=== PATIENT | male | born 1970 | race African-American/Black ===

== ENCOUNTER 2016-05-22 22:29 | Observation (INO) | payer OTHER ==
[2016-05-22] MEDS ORDERED: Heparin for STEMI(*) 5,000 UNITS/ML 1 ML VIAL IV ONE ×2 (22:41→22:45)
[2016-05-22] MEDS ORDERED: nitroGLYCERIN DRIP* 0 ML ONE (22:41)
[2016-05-22] MEDS ORDERED: Ticagrelor* 90 MG TAB PO ONE ×2 (22:41→22:45)
[2016-05-22 22:52] LABS: Hematocrit 43 % (42-52); Mean Corpuscular HGB Conc 33 g/dl (31-36); Mean Corpuscular Hemoglobin 29 pg (27-31); Mean Corpuscular Volume 88 fL (80-94); Mean Platelet Volume 8 um3 (7.4-10.4); Red Blood Count 4.89 10^6/ul (4.0-5.4); Red Cell Distribution Width 14 % (10.5-15); White Blood Count 6.6 10^3/ul (3.5-10.8)
[2016-05-22] MEDS ORDERED: fentaNYL* 50 MCG/ML 2 ML VIAL (100 MCG VIAL) ONE (23:04)
[2016-05-22] MEDS ORDERED: Midazolam* 1 MG/ML 5 ML VIAL (5 MG) ONE (23:04)
[2016-05-22] MEDS ORDERED: Lidocaine 1% INJ* 10 MG/ML 30 ML SDV ONE (23:05)
[2016-05-22] MEDS ORDERED: Heparin 2 UNITS/ML IVPREMIX* 0 ML IV ONE (23:05)
[2016-05-22] MEDS ORDERED: nitroGLYCERIN DRIP* 250 ML ONE (23:05)
[2016-05-22] MEDS ORDERED: Iohexol 350 (CONTRAST) 200 ML MDV IV ONE (23:05)
[2016-05-22 23:06] LABS: BUN/Creatinine Ratio 13.5 (8-20); Calcium 9.5 mg/dL (8.6-10.3); EGFR African American 53.9 (>60); EGFR Non-African American 41.9 (>60); Globulin 3.7 g/dL (2-4); Potassium 3.8 mmol/L (3.5-5.0); Total Bilirubin 0.3 mg/dL (0.2-1.0); Total Protein 7.7 g/dL (6.4-8.9)
[2016-05-22] MEDS ORDERED: Heparin(*) 1000 UNIT/ML 10 ML VIAL CATH LAB IV ONE (23:06)
[2016-05-22 23:07] LABS: Urine Bacteria Absent (Absent); Urine Bilirubin Negative (Negative); Urine Glucose Negative (Negative); Urine Nitrite Negative (Negative)
[2016-05-22 23:10] LABS: Troponin I 0.01 ng/mL (<0.04)
--- NOTE | 2016-05-22 23:10 | RAD ---
Indication: Chest pain. STEMI alert. Comparison: None. Technique: Upright AP 2258 hours Report: Clear lungs and pleural spaces. Negative for pneumothorax. Mild cardiomegaly. Unremarkable central pulmonary vasculature and mediastinal contours. IMPRESSION: Mild cardiomegaly without evidence for pulmonary edema.
--- NOTE | 2016-05-23 00:33 | HP ---
H&P (Free Text) History and Physical: PCP: unknown Date/Time of Evaluation: 05/23/2015 0025 CC: chest pain HPI: Mr Márquez is a 45YO incarcerated male HX HTN who was walking up some stairs today around 1999 when he developed sharp, non-radiating L-sided chest pain associated with SOB, nausea, sweating, palpitations, and light-headedness. The chest pain was worse with deep inspiration. He denies F/C, cough, congestions, or other issues. He reported to Martín Deras MD interventional cardiology that he had had a cardiac cath in [facility] ~1 year ago, but a call by Dr Deras to that facility revealed no cardiac cath was done. He had an ECHO showing LVH & an EF of ~60%. Work up here reveals 2mm ST elevation in V1-4 with stable vitals and negative lab work. CXR is negative for acute finding. PMedHx HTN CKD stg3a Allergies Lisinopril Allergy (Severe, Verified 05/22/16 22:41) Airway Obstruction Ambulatory Orders Clonidine HCl [Catapres] 0.1 mg PO BID 05/23/16 Hydrochlorothiazide TAB* [Hydrodiuril TAB*] 25 mg PO DAILY 05/23/16 Metoprolol Tartrate [Lopressor] 25 mg PO BID 05/23/16 amLODIPine TAB* [Norvasc TAB*] 10 mg PO DAILY 05/23/16 PSurgHx LUE fasciotomy eye surgery SocHx: no tobacco, alcohol, or recreational drugs; incarcerated; full code status FamHx: Father: VT prior to age 65 ROS: as above, otherwise reviewed and all were negative Constitutional: NAD, normally developed, well-nourished black male vitals: Vital Signs Temp 36.8 C 05/22/16 22:32 Pulse 64 05/22/16 22:32 Resp 16 05/22/16 22:32 BP 152/92 05/22/16 22:32 Pulse Ox 96 05/22/16 22:32 Intake & Output 05/22/16 05/22/16 05/23/16 11:59 23:59 11:59 Weight 220 lb HEENM: atraumatic; sclera/conjunctiva: non-icteric/clear; hearing: intact; oropharynx: clear, mucosa moist Neck: soft tissue: normal; thyroid: normal Pulmonary: clear to auscultation bilaterally, good aeration, no accessory muscle use CV: RR/RR, normal S1S2, no carotid bruit, no jugular venous distention, 2+ B DP/ PT, no edema Abdominal: soft, non-distended, non-tender, no rebound/guarding/rigidity, normoactive bowel sounds, no hepatosplenomegaly or masses, no costovertebral angle tenderness Musculoskeletal: general: grossly intact; gait: stable Integumental: normal appearance and texture Psychiatric orientation: AA&O to PPS affect: calm mood: cooperative eye contact: good content: unreliable responses: timely insight: fair Testing: Lab Results 05/22/16 05/22/16 05/22/16 Range/Units 22:30 22:30 22:30 WBC 6.6 (3.5-10.8) 10^3/ul RBC 4.89 (4.0-5.4) 10^6/ul Hgb 14.0 (14.0-18.0) g/dl Hct 43 (42-52) % MCV 88 (80-94) fL MCH 29 (27-31) pg MCHC 33 (31-36) g/dl RDW 14 (10.5-15) % Plt Count 232 (150-450) 10^3/ul MPV 8 (7.4-10.4) um3 INR (Anticoag Therapy) 1.10 (0.89-1.11) APTT 31.0 (26.0-36.3) seconds Sodium 141 (133-145) mmol/L Potassium 3.8 (3.5-5.0) mmol/L Chloride 103 (101-111) mmol/L Carbon Dioxide 31 (22-32) mmol/L Anion Gap 7 (2-11) mmol/L BUN 24 (6-24) mg/dL Creatinine 1.78 H (0.67-1.17) mg/dL Est GFR ( Amer) 53.9 (>60) Est GFR (Non-Af Amer) 41.9 (>60) BUN/Creatinine Ratio 13.5 (8-20) Glucose 95 (70-100) mg/dL Calcium 9.5 (8.6-10.3) mg/dL Total Bilirubin 0.30 (0.2-1.0) mg/dL AST 19 (13-39) U/L ALT 18 (7-52) U/L Alkaline Phosphatase 61 (34-104) U/L Total Creatine Kinase 158 (10-223) U/L CK-MB (CK-2) 2.0 (0.6-6.3) ng/mL Myoglobin 45.1 (17.4-105.7) ng/mL Troponin I 0.01 (<0.04) ng/mL B-Natriuretic Peptide ( - 100) pg/mL Total Protein 7.7 (6.4-8.9) g/dL Albumin 4.0 (3.2-5.2) g/dL Globulin 3.7 (2-4) g/dL Albumin/Globulin Ratio 1.1 (1-3) LDL Cholesterol Direct 78 mg/dL Urine Color Urine Appearance Urine pH (5-9) Ur Specific [place] (1.010-1.030) Urine Protein (Negative) Urine Ketones (Negative) Urine Blood (Negative) Urine Nitrate (Negative) Urine Bilirubin (Negative) Urine Urobilinogen (Negative) Ur Leukocyte Esterase (Negative) Urine WBC (Auto) (Absent) Urine RBC (Auto) (Absent) Urine Bacteria (Absent) Urine Glucose (Negative) Urine Ascorbic Acid (Negative) Blood Type Antibody Screen 05/22/16 05/22/16 05/22/16 Range/Units 22:30 22:35 22:48 WBC (3.5-10.8) 10^3/ul RBC (4.0-5.4) 10^6/ul Hgb (14.0-18.0) g/dl Hct (42-52) % MCV (80-94) fL MCH (27-31) pg MCHC (31-36) g/dl RDW (10.5-15) % Plt Count (150-450) 10^3/ul MPV (7.4-10.4) um3 INR (Anticoag Therapy) (0.89-1.11) APTT (26.0-36.3) seconds Sodium (133-145) mmol/L Potassium (3.5-5.0) mmol/L Chloride (101-111) mmol/L Carbon Dioxide (22-32) mmol/L Anion Gap (2-11) mmol/L BUN (6-24) mg/dL Creatinine (0.67-1.17) mg/dL Est GFR ( Amer) (>60) Est GFR (Non-Af Amer) (>60) BUN/Creatinine Ratio (8-20) Glucose (70-100) mg/dL Calcium (8.6-10.3) mg/dL Total Bilirubin (0.2-1.0) mg/dL AST (13-39) U/L ALT (7-52) U/L Alkaline Phosphatase (34-104) U/L Total Creatine Kinase (10-223) U/L CK-MB (CK-2) (0.6-6.3) ng/mL Myoglobin (17.4-105.7) ng/mL Troponin I (<0.04) ng/mL B-Natriuretic Peptide 38 ( - 100) pg/mL Total Protein (6.4-8.9) g/dL Albumin (3.2-5.2) g/dL Globulin (2-4) g/dL Albumin/Globulin Ratio (1-3) LDL Cholesterol Direct mg/dL Urine Color Yellow Urine Appearance Clear Urine pH 5.0 (5-9) Ur Specific [place] 1.021 (1.010-1.030) Urine Protein 2+(100 mg/dl) H (Negative) Urine Ketones Negative (Negative) Urine Blood Negative (Negative) Urine Nitrate Negative (Negative) Urine Bilirubin Negative (Negative) Urine Urobilinogen Negative (Negative) Ur Leukocyte Esterase Negative (Negative) Urine WBC (Auto) Trace(0-5/hpf) (Absent) Urine RBC (Auto) Trace(0-2/hpf) (Absent) Urine Bacteria Absent (Absent) Urine Glucose Negative (Negative) Urine Ascorbic Acid * H (Negative) Blood Type O Positive Antibody Screen Negative ECG, personally reviewed: NSR rate 65, ST elevation V1-4 CXR, personally reviewed: IMPRESSION: Mild cardiomegaly without evidence for pulmonary edema. Impression: 45M presenting with chest pain for r/o ACS DIAGNOSIS & PLAN Primary chest pain r/o ACS : telemetry : trend troponin : ticagrelor : heparin GTT : supplemental oxygen : Martín Deras MD interventional cardiology consulted in ED, does not plan to follow unless work up is positive : supportive care Secondary HTN : continue amlodipine, metoprolol & clonidine : hold HCTZ CKD stg3a : IVFs, monitor Admission Rational: observation for r/o ACS DVTp: heparin GTT Code Status: full
[2016-05-23] MEDS ORDERED: Morphine INJ* 2 MG/ML 1 ML CARPUJECT IV PRN (00:35)
[2016-05-23] MEDS ORDERED: hydrALAZINE IV* 20 MG/ML VIAL IV PRN (00:35)
[2016-05-23] MEDS ORDERED: Melatonin (NF) 3 MG TAB PO PRN (00:35)
[2016-05-23] MEDS ORDERED: Ondansetron INJ* 2 MG/ML VIAL IV PRN (00:35)
[2016-05-23] MEDS ORDERED: Heparin DRIP 25,000 UNITS(*) 25,000 UNITS/500 ML BAG IVPB SCH (00:45)
[2016-05-23] MEDS ORDERED: Heparin VIAL(*) 5000 UNITS/ML VIAL (FIVE THOUSAND) IV SCH (02:00)
[2016-05-23] MEDS ORDERED: Omeprazole CAP* 20 MG PO SCH (06:00)
[2016-05-23 07:11] LABS: BUN/Creatinine Ratio 12.8 (8-20); Calcium 9.3 mg/dL (8.6-10.3); EGFR African American 59.3 (>60); EGFR Non-African American 46.1 (>60); Potassium 3.4 mmol/L (3.5-5.0)
[2016-05-23 07:14] LABS: Troponin I 0.01 ng/mL (<0.04)
[2016-05-23] MEDS: Metoprolol Tartrate TAB* 50 mg PO SCH ×2 (07:59→20:38)
[2016-05-23] MEDS: cloNIDine TAB* 0.1 MG PO SCH ×2 (07:59→20:38)
[2016-05-23] MEDS: amLODIPine TAB* 5 MG PO SCH (08:03)
[2016-05-23] MEDS ORDERED: Aspirin TAB* 325 MG PO SCH (09:00)
[2016-05-23] MEDS ORDERED: Docusate CAP* 100 MG PO SCH (09:00)
--- NOTE | 2016-05-23 12:29 | ED ---
Scarlet Pérez Matthew, scribed for Yakov Ruiz MD on 05/22/16 at 2249 . HPI Chest Pain - HPI Summary HPI Summary: A 45 y/o male presents to the ED with constant, sudden chest pain since 20:30 after climbing a flight of stairs. The pain is described as sharp, stabbing and rated 4/10 in severity. Associated symptoms include SOB, diaphoresis, and nausea. The patient states that he felt like he was going to pass out. PMHx includes an GA in January of 2016. At that time, the patient states he was treated at [facility]. He also states the pain feels similar to his pervious GA. His chest pain worsens with deep breaths and movement, rated 6/10 in severity. He is not currently on blood thinners and denies the placement of stents during his previous GA. The patient took aspirin and NTG [employer], which did not alleviate his chest pain. - History of Current Complaint Chief Complaint: EDChestPainROMI Hx Obtained From: Patient Onset/Duration: Started Hours Ago, Atraumatic, Still Present Timing: Constant Initial Severity: Moderate Current Severity: Moderate Pain Intensity: 4 Pain Scale Used: 0-10 Numeric Chest Pain Location: Left Lateral Chest Pain Radiates: No Character: Sharp/Stabbing Aggravating Factor(s): Movement, Deep Breaths Alleviating Factor(s): Nothing Associated Signs and Symptoms: Positive: Chest Pain, Shortness of Breath, Diaphoresis, Nausea - Allergy/Home Medications Allergies/Adverse Reactions: Allergies Allergy/AdvReac Type Severity Reaction Status Date / Time Lisinopril Allergy Severe Airway Verified 05/22/16 22:41 Obstruction Home Medications: Home Medications Clonidine HCl [Catapres] 0.1 mg PO BID 05/23/16 [History Confirmed 05/23/16] Hydrochlorothiazide TAB* [Hydrodiuril TAB*] 25 mg PO DAILY 05/23/16 [History Confirmed 05/23/16] Metoprolol Tartrate [Lopressor] 25 mg PO BID 05/23/16 [History Confirmed ] amLODIPine TAB* [Norvasc TAB*] 10 mg PO DAILY 05/23/16 [History Confirmed ] PMH/Surg Hx/FS Hx/Imm Hx Cardiovascular History: Reports: Hx Hypertension, Hx Myocardial Infarction - 2015 Infectious Disease History: No Infectious Disease History: Denies: Traveled Outside the [place] in Last 30 Days - Family History Known Family History: Positive: Cardiac Disease - Father - Social History Alcohol Amount: The patient states he used to binge drink frequently Hx Tobacco Use: Yes Smoking Status (MU): Former Smoker - since a few months ago Review of Systems Positive: Skin Diaphoresis Eyes: Negative ENT: Negative Positive: Chest Pain Positive: Shortness Of Breath Positive: Nausea Genitourinary: Negative Musculoskeletal: Negative Skin: Negative Neurological: Negative Psychological: Normal All Other Systems Reviewed And Are Negative: Yes Physical Exam - Summary Physical Exam Summary: VITAL SIGNS: Reviewed. GENERAL: Patient is a well developed and nourished male with acute distress secondary to pain. Patient is not in any acute respiratory distress. HEAD AND FACE: No signs of trauma. No ecchymosis, hematomas or skull depressions. No sinus tenderness. EYES: PERRLA, EOMI x 2, No injected conjunctiva, no nystagmus. EARS: Hearing grossly intact. Ear canals and tympanic membranes are within normal limits. MOUTH: Oropharynx within normal limits. NECK: Supple, trachea is midline, no adenopathy, no JVD, no carotid bruit, no c- spine tenderness, neck with full ROM. CHEST: Symmetric, no tenderness at palpation LUNGS: Clear to auscultation bilaterally. No wheezing or crackles. CVS: Regular rate and rhythm, S1 and S2 present, no murmurs or gallops appreciated. ABDOMEN: Soft, non-tender. No signs of distention. No rebound no guarding, and no masses palpated. Bowel sounds are normal. EXTREMITIES: FROM in all major joints, no edema, no cyanosis or clubbing. NEURO: Alert and oriented x 3. No acute neurological deficits. Speech is normal and follows commands. SKIN: Dry and warm Triage Information Reviewed: Yes Vital Signs On Initial Exam: Initial Vitals Temp Pulse Resp BP Pulse Ox 98.3 F 64 16 152/92 96 05/22/16 22:32 05/22/16 22:32 05/22/16 22:32 05/22/16 22:32 05/22/16 22:32 Vital Signs Reviewed: Yes Diagnostics - Vital Signs Vital Signs Temp Pulse Resp BP Pulse Ox 05/22/16 22:32 98.3 F 64 16 152/92 96 - Laboratory Lab Results: Lab Results 05/22/16 05/22/16 05/22/16 Range/Units 22:30 22:30 22:30 WBC 6.6 (3.5-10.8) 10^3/ul RBC 4.89 (4.0-5.4) 10^6/ul Hgb 14.0 (14.0-18.0) g/dl Hct 43 (42-52) % MCV 88 (80-94) fL MCH 29 (27-31) pg MCHC 33 (31-36) g/dl RDW 14 (10.5-15) % Plt Count 232 (150-450) 10^3/ul MPV 8 (7.4-10.4) um3 INR (Anticoag Therapy) 1.10 (0.89-1.11) APTT 31.0 (26.0-36.3) seconds Sodium 141 (133-145) mmol/L Potassium 3.8 (3.5-5.0) mmol/L Chloride 103 (101-111) mmol/L Carbon Dioxide 31 (22-32) mmol/L Anion Gap 7 (2-11) mmol/L BUN 24 (6-24) mg/dL Creatinine 1.78 H (0.67-1.17) mg/dL Est GFR ( Amer) 53.9 (>60) Est GFR (Non-Af Amer) 41.9 (>60) BUN/Creatinine Ratio 13.5 (8-20) Glucose 95 (70-100) mg/dL Calcium 9.5 (8.6-10.3) mg/dL Total Bilirubin 0.30 (0.2-1.0) mg/dL AST 19 (13-39) U/L ALT 18 (7-52) U/L Alkaline Phosphatase 61 (34-104) U/L Total Creatine Kinase 158 (10-223) U/L CK-MB (CK-2) 2.0 (0.6-6.3) ng/mL Myoglobin 45.1 (17.4-105.7) ng/mL Troponin I 0.01 (<0.04) ng/mL B-Natriuretic Peptide ( - 100) pg/mL Total Protein 7.7 (6.4-8.9) g/dL Albumin 4.0 (3.2-5.2) g/dL Globulin 3.7 (2-4) g/dL Albumin/Globulin Ratio 1.1 (1-3) LDL Cholesterol Direct 78 mg/dL Urine Color Urine Appearance Urine pH (5-9) Ur Specific [place] (1.010-1.030) Urine Protein (Negative) Urine Ketones (Negative) Urine Blood (Negative) Urine Nitrate (Negative) Urine Bilirubin (Negative) Urine Urobilinogen (Negative) Ur Leukocyte Esterase (Negative) Urine WBC (Auto) (Absent) Urine RBC (Auto) (Absent) Urine Bacteria (Absent) Urine Glucose (Negative) Urine Ascorbic Acid (Negative) Blood Type Antibody Screen 05/22/16 05/22/16 05/22/16 Range/Units 22:30 22:35 22:48 WBC (3.5-10.8) 10^3/ul RBC (4.0-5.4) 10^6/ul Hgb (14.0-18.0) g/dl Hct (42-52) % MCV (80-94) fL MCH (27-31) pg MCHC (31-36) g/dl RDW (10.5-15) % Plt Count (150-450) 10^3/ul MPV (7.4-10.4) um3 INR (Anticoag Therapy) (0.89-1.11) APTT (26.0-36.3) seconds Sodium (133-145) mmol/L Potassium (3.5-5.0) mmol/L Chloride (101-111) mmol/L Carbon Dioxide (22-32) mmol/L Anion Gap (2-11) mmol/L BUN (6-24) mg/dL Creatinine (0.67-1.17) mg/dL Est GFR ( Amer) (>60) Est GFR (Non-Af Amer) (>60) BUN/Creatinine Ratio (8-20) Glucose (70-100) mg/dL Calcium (8.6-10.3) mg/dL Total Bilirubin (0.2-1.0) mg/dL AST (13-39) U/L ALT (7-52) U/L Alkaline Phosphatase (34-104) U/L Total Creatine Kinase (10-223) U/L CK-MB (CK-2) (0.6-6.3) ng/mL Myoglobin (17.4-105.7) ng/mL Troponin I (<0.04) ng/mL B-Natriuretic Peptide 38 ( - 100) pg/mL Total Protein (6.4-8.9) g/dL Albumin (3.2-5.2) g/dL Globulin (2-4) g/dL Albumin/Globulin Ratio (1-3) LDL Cholesterol Direct mg/dL Urine Color Yellow Urine Appearance Clear Urine pH 5.0 (5-9) Ur Specific [place] 1.021 (1.010-1.030) Urine Protein 2+(100 mg/dl) H (Negative) Urine Ketones Negative (Negative) Urine Blood Negative (Negative) Urine Nitrate Negative (Negative) Urine Bilirubin Negative (Negative) Urine Urobilinogen Negative (Negative) Ur Leukocyte Esterase Negative (Negative) Urine WBC (Auto) Trace(0-5/hpf) (Absent) Urine RBC (Auto) Trace(0-2/hpf) (Absent) Urine Bacteria Absent (Absent) Urine Glucose Negative (Negative) Urine Ascorbic Acid * H (Negative) Blood Type O Positive Antibody Screen Negative 05/23/16 Range/Units 00:40 WBC (3.5-10.8) 10^3/ul RBC (4.0-5.4) 10^6/ul Hgb (14.0-18.0) g/dl Hct (42-52) % MCV (80-94) fL MCH (27-31) pg MCHC (31-36) g/dl RDW (10.5-15) % Plt Count (150-450) 10^3/ul MPV (7.4-10.4) um3 INR (Anticoag Therapy) (0.89-1.11) APTT (26.0-36.3) seconds Sodium (133-145) mmol/L Potassium (3.5-5.0) mmol/L Chloride (101-111) mmol/L Carbon Dioxide (22-32) mmol/L Anion Gap (2-11) mmol/L BUN (6-24) mg/dL Creatinine (0.67-1.17) mg/dL Est GFR ( Amer) (>60) Est GFR (Non-Af Amer) (>60) BUN/Creatinine Ratio (8-20) Glucose (70-100) mg/dL Calcium (8.6-10.3) mg/dL Total Bilirubin (0.2-1.0) mg/dL AST (13-39) U/L ALT (7-52) U/L Alkaline Phosphatase (34-104) U/L Total Creatine Kinase (10-223) U/L CK-MB (CK-2) (0.6-6.3) ng/mL Myoglobin (17.4-105.7) ng/mL Troponin I 0.01 (<0.04) ng/mL B-Natriuretic Peptide ( - 100) pg/mL Total Protein (6.4-8.9) g/dL Albumin (3.2-5.2) g/dL Globulin (2-4) g/dL Albumin/Globulin Ratio (1-3) LDL Cholesterol Direct mg/dL Urine Color Urine Appearance Urine pH (5-9) Ur Specific [place] (1.010-1.030) Urine Protein (Negative) Urine Ketones (Negative) Urine Blood (Negative) Urine Nitrate (Negative) Urine Bilirubin (Negative) Urine Urobilinogen (Negative) Ur Leukocyte Esterase (Negative) Urine WBC (Auto) (Absent) Urine RBC (Auto) (Absent) Urine Bacteria (Absent) Urine Glucose (Negative) Urine Ascorbic Acid (Negative) Blood Type Antibody Screen Result Diagrams: 05/22/16 22:30 05/23/16 05:07 Lab Statement: Any lab studies that have been ordered have been reviewed, and results considered in the medical decision making process. - Radiology CXR Xray Interpretation: Positive (See Comments) - IMPRESSION: Mild cardiomegaly without evidence for pulmonary edema. Radiology Interpretation Completed By: Radiologist - EKG 22:31 Cardiac Rate: NL - 66 bpm EKG Rhythm: Sinus Rhythm EKG Interpretation: ST elevation in leads V1, V2, V3; T-Wave inversion in lead III 22:35 Cardiac Rate: NL - 62 bpm EKG Rhythm: Sinus Rhythm EKG Interpretation: ST elevation in leads V1, V2, V3; T-Wave inversion in lead III Chest Pain Course/Dx - Course Assessment/Plan: 45 y/o male presents to the ED from detention with CC of chest pain. The patient reports that he was going up the steps when he developed chest pain and pressure, diaphoresis, SOB, nausea, and dizziness. . The patient was given aspirin and NTG and transferred to the ED. During the ED course, the patient continues to have chest pressure, nausea and dizziness. EKG has ST elevations vs LVH in the anterior leads; however, there is no EKG for comparison. The patient reports Hx of STEMI on 01/30, and with an EF of 20%. He reports that this incident occurred at [facility]. Patient also has long Hx of uncontrolled HTN. Therefore, because of the patients presentation, his PMH and EKG I decide to call STEMI alert. Patient was given Lovenox and Brilinta as per Dr. Deras. . Dr. Deras evaluated the patient and after obtaining old EKG from [facility] he believes the patient does not need to go to the laboratory equipment cleaner at this time and he should be admitted to the ICU with a heparin drip. .. Dr. Jansen accepts admission of the patient for further observation and management. - Chest Pain Differential Diagnosis/HQI/PQRI: Acute GA, ACS, Angina, CHF, Chest Wall - Diagnoses Provider Diagnoses: Chest pain with high risk for cardiac etiology During the Visit The Following Alert/Code Occurred: STEMI - Provider Notifications Discussed Care Of Patient With: Dr. Deras (Cardologist) at 22:51 -- Notified of patient's history and will evaluate the patient. Dr. Jansen ( Hospitalist) at 24:00 -- Notified of patient's history and will admit the patient into his services. Discharge - Discharge Plan Condition: Stable Disposition: ADMITTED TO [facility] The documentation as recorded by the Scarlet dominguez Matthew accurately reflects the service I personally performed and the decisions made by , Yakov Ruiz MD.
[2016-05-23] MEDS ORDERED: Potassium Chlor TAB* 20 MEQ TAB.ER PO ONE (13:45)
[2016-05-23] MEDS: Heparin VIAL(*) 5000 UNITS/ML VIAL (FIVE THOUSAND) SUBCUT SCH ×2 (14:17→21:43)
--- NOTE | 2016-05-23 14:29 | PN ---
Subjective Date of Service: 05/23/16 Interval History: Pt is feeling ok. His chest pain has resolved. He states the pain was left sided and he was markedly diaphoretic when having the chest pain. Objective Active Medications: Acetaminophen (Tylenol Tab*) 650 mg PO Q6H PRN PRN Reason: FEVER/PAIN Amlodipine Besylate (Norvasc Tab*) 10 mg PO DAILY [facility] Last Admin: 05/23/16 08:03 Dose: 10 mg Aspirin (Aspirin Ec Low Dose*) 81 mg PO DAILY [facility] Clonidine HCl (Catapres Tab*) 0.1 mg PO BID [facility] Last Admin: 05/23/16 07:59 Dose: 0.1 mg Heparin Sodium (Porcine) (Heparin Vial(*)) 5,000 units SUBCUT Q8HR [facility] Hydralazine HCl (Apresoline Iv*) 10 mg IV Q4H PRN PRN Reason: Systolic >170 Metoprolol Tartrate (Lopressor Tab*) 25 mg PO BID [facility] Last Admin: 05/23/16 07:59 Dose: 25 mg Ondansetron HCl (Zofran Inj*) 4 mg IV Q6H PRN PRN Reason: NAUSEA Vital Signs 05/23/16 05/23/16 05/23/16 01:56 02:57 03:12 Temperature 98.0 F 98.2 F Pulse Rate 66 61 Respiratory 14 20 16 Rate Blood Pressure 155/84 155/91 (mmHg) O2 Sat by Pulse 98 100 Oximetry 05/23/16 05/23/16 05/23/16 05:12 07:26 11:06 Temperature 98.4 F 98.5 F 98.5 F Pulse Rate 56 65 61 Respiratory 16 16 16 Rate Blood Pressure 150/78 140/89 128/74 (mmHg) O2 Sat by Pulse 100 100 100 Oximetry Oxygen Devices in Use Now: None Appearance: Middle aged male sitting up in bed, NAD Eyes: No Scleral Icterus Ears/Nose/Mouth/Throat: Mucous Membranes Moist Respiratory: Symmetrical Chest Expansion and Respiratory Effort, Clear to Auscultation Cardiovascular: NL Sounds; No Murmurs; No JVD, RRR, No Edema Abdominal: NL Sounds; No Tenderness; No Distention Extremities: No Clubbing, Cyanosis Skin: No Rash or Ulcers, No Nodules or Sclerosis Neurological: Alert and Oriented x 3 Result Diagrams: 05/22/16 22:30 05/23/16 05:07 Additional Lab and Data: Lab Results 05/22/16 05/22/16 05/22/16 Range/Units 22:30 22:30 22:30 WBC 6.6 (3.5-10.8) 10^3/ul RBC 4.89 (4.0-5.4) 10^6/ul Hgb 14.0 (14.0-18.0) g/dl Hct 43 (42-52) % MCV 88 (80-94) fL MCH 29 (27-31) pg MCHC 33 (31-36) g/dl RDW 14 (10.5-15) % Plt Count 232 (150-450) 10^3/ul MPV 8 (7.4-10.4) um3 INR (Anticoag Therapy) 1.10 (0.89-1.11) APTT 31.0 (26.0-36.3) seconds Sodium 141 (133-145) mmol/L Potassium 3.8 (3.5-5.0) mmol/L Chloride 103 (101-111) mmol/L Carbon Dioxide 31 (22-32) mmol/L Anion Gap 7 (2-11) mmol/L BUN 24 (6-24) mg/dL Creatinine 1.78 H (0.67-1.17) mg/dL Est GFR ( Amer) 53.9 (>60) Est GFR (Non-Af Amer) 41.9 (>60) BUN/Creatinine Ratio 13.5 (8-20) Glucose 95 (70-100) mg/dL Calcium 9.5 (8.6-10.3) mg/dL Total Bilirubin 0.30 (0.2-1.0) mg/dL AST 19 (13-39) U/L ALT 18 (7-52) U/L Alkaline Phosphatase 61 (34-104) U/L Total Creatine Kinase 158 (10-223) U/L CK-MB (CK-2) 2.0 (0.6-6.3) ng/mL Myoglobin 45.1 (17.4-105.7) ng/mL Troponin I 0.01 (<0.04) ng/mL B-Natriuretic Peptide ( - 100) pg/mL Total Protein 7.7 (6.4-8.9) g/dL Albumin 4.0 (3.2-5.2) g/dL Globulin 3.7 (2-4) g/dL Albumin/Globulin Ratio 1.1 (1-3) LDL Cholesterol Direct 78 mg/dL Urine Color Urine Appearance Urine pH (5-9) Ur Specific [place] (1.010-1.030) Urine Protein (Negative) Urine Ketones (Negative) Urine Blood (Negative) Urine Nitrate (Negative) Urine Bilirubin (Negative) Urine Urobilinogen (Negative) Ur Leukocyte Esterase (Negative) Urine WBC (Auto) (Absent) Urine RBC (Auto) (Absent) Urine Bacteria (Absent) Urine Glucose (Negative) Urine Ascorbic Acid (Negative) Blood Type Antibody Screen 05/22/16 05/22/16 05/22/16 Range/Units 22:30 22:35 22:48 WBC (3.5-10.8) 10^3/ul RBC (4.0-5.4) 10^6/ul Hgb (14.0-18.0) g/dl Hct (42-52) % MCV (80-94) fL MCH (27-31) pg MCHC (31-36) g/dl RDW (10.5-15) % Plt Count (150-450) 10^3/ul MPV (7.4-10.4) um3 INR (Anticoag Therapy) (0.89-1.11) APTT (26.0-36.3) seconds Sodium (133-145) mmol/L Potassium (3.5-5.0) mmol/L Chloride (101-111) mmol/L Carbon Dioxide (22-32) mmol/L Anion Gap (2-11) mmol/L BUN (6-24) mg/dL Creatinine (0.67-1.17) mg/dL Est GFR ( Amer) (>60) Est GFR (Non-Af Amer) (>60) BUN/Creatinine Ratio (8-20) Glucose (70-100) mg/dL Calcium (8.6-10.3) mg/dL Total Bilirubin (0.2-1.0) mg/dL AST (13-39) U/L ALT (7-52) U/L Alkaline Phosphatase (34-104) U/L Total Creatine Kinase (10-223) U/L CK-MB (CK-2) (0.6-6.3) ng/mL Myoglobin (17.4-105.7) ng/mL Troponin I (<0.04) ng/mL B-Natriuretic Peptide 38 ( - 100) pg/mL Total Protein (6.4-8.9) g/dL Albumin (3.2-5.2) g/dL Globulin (2-4) g/dL Albumin/Globulin Ratio (1-3) LDL Cholesterol Direct mg/dL Urine Color Yellow Urine Appearance Clear Urine pH 5.0 (5-9) Ur Specific [place] 1.021 (1.010-1.030) Urine Protein 2+(100 mg/dl) H (Negative) Urine Ketones Negative (Negative) Urine Blood Negative (Negative) Urine Nitrate Negative (Negative) Urine Bilirubin Negative (Negative) Urine Urobilinogen Negative (Negative) Ur Leukocyte Esterase Negative (Negative) Urine WBC (Auto) Trace(0-5/hpf) (Absent) Urine RBC (Auto) Trace(0-2/hpf) (Absent) Urine Bacteria Absent (Absent) Urine Glucose Negative (Negative) Urine Ascorbic Acid * H (Negative) Blood Type O Positive Antibody Screen Negative 05/23/16 Range/Units 00:40 WBC (3.5-10.8) 10^3/ul RBC (4.0-5.4) 10^6/ul Hgb (14.0-18.0) g/dl Hct (42-52) % MCV (80-94) fL MCH (27-31) pg MCHC (31-36) g/dl RDW (10.5-15) % Plt Count (150-450) 10^3/ul MPV (7.4-10.4) um3 INR (Anticoag Therapy) (0.89-1.11) APTT (26.0-36.3) seconds Sodium (133-145) mmol/L Potassium (3.5-5.0) mmol/L Chloride (101-111) mmol/L Carbon Dioxide (22-32) mmol/L Anion Gap (2-11) mmol/L BUN (6-24) mg/dL Creatinine (0.67-1.17) mg/dL Est GFR ( Amer) (>60) Est GFR (Non-Af Amer) (>60) BUN/Creatinine Ratio (8-20) Glucose (70-100) mg/dL Calcium (8.6-10.3) mg/dL Total Bilirubin (0.2-1.0) mg/dL AST (13-39) U/L ALT (7-52) U/L Alkaline Phosphatase (34-104) U/L Total Creatine Kinase (10-223) U/L CK-MB (CK-2) (0.6-6.3) ng/mL Myoglobin (17.4-105.7) ng/mL Troponin I 0.01 (<0.04) ng/mL B-Natriuretic Peptide ( - 100) pg/mL Total Protein (6.4-8.9) g/dL Albumin (3.2-5.2) g/dL Globulin (2-4) g/dL Albumin/Globulin Ratio (1-3) LDL Cholesterol Direct mg/dL Urine Color Urine Appearance Urine pH (5-9) Ur Specific [place] (1.010-1.030) Urine Protein (Negative) Urine Ketones (Negative) Urine Blood (Negative) Urine Nitrate (Negative) Urine Bilirubin (Negative) Urine Urobilinogen (Negative) Ur Leukocyte Esterase (Negative) Urine WBC (Auto) (Absent) Urine RBC (Auto) (Absent) Urine Bacteria (Absent) Urine Glucose (Negative) Urine Ascorbic Acid (Negative) Blood Type Antibody Screen Assess/Plan/Problems-Billing Mr Márquez is a 45 yo M who has a h/o HTN and stage III CKD who presented to the ER with c/o chest pain and associated diaphoresis. - Patient Problems (1) Chest pain Current Visit: Yes Status: Acute Code(s): R07.9 - CHEST PAIN, UNSPECIFIED SNOMED Code(s): 94674572 Comment: No signs of ACS. Stop the heparin drip. Continue to monitor on tele. Plan on stress test 05/25/16. He has been told to call his nurse if he has any recurrent chest pain. (2) HTN (hypertension) Current Visit: Yes Status: Acute Code(s): I10 - ESSENTIAL (PRIMARY) HYPERTENSION SNOMED Code(s): 06116646 Comment: BP is under good control today. Continue to monitor and continue current medication regimen. (3) Stage III chronic kidney disease Current Visit: Yes Status: Acute Code(s): N18.3 - CHRONIC KIDNEY DISEASE, STAGE 3 (MODERATE) SNOMED Code(s): 147453600 Comment: Creatinine is stable. (4) DVT prophylaxis Current Visit: Yes Status: Acute Code(s): TFL6452 - SNOMED Code(s): 642492185 Comment: SQ heparin (5) Full code status Current Visit: Yes Status: Acute Code(s): Z78.9 - OTHER SPECIFIED HEALTH STATUS SNOMED Code(s): 443910827
[2016-05-23] MEDS: Acetaminophen TAB* 325 MG PO PRN (20:43)
[2016-05-24] MEDS: Heparin VIAL(*) 5000 UNITS/ML VIAL (FIVE THOUSAND) SUBCUT SCH ×3 (05:08→21:57)
[2016-05-24] MEDS: Metoprolol Tartrate TAB* 50 mg PO SCH ×2 (08:10→21:52)
[2016-05-24] MEDS: cloNIDine TAB* 0.1 MG PO SCH (08:10)
[2016-05-24] MEDS: Aspirin EC Low Dose* 81 MG TAB.EC PO SCH (08:10)
[2016-05-24] MEDS: amLODIPine TAB* 5 MG PO SCH (08:11)
--- NOTE | 2016-05-24 11:08 | PN ---
Subjective Date of Service: 05/24/16 Interval History: Pt is feeling fine. He denies any chest pain. No SOB. Objective Active Medications: Acetaminophen (Tylenol Tab*) 650 mg PO Q6H PRN PRN Reason: FEVER/PAIN Last Admin: 05/23/16 20:43 Dose: 650 mg Amlodipine Besylate (Norvasc Tab*) 10 mg PO DAILY [facility] Last Admin: 05/24/16 08:11 Dose: 10 mg Aspirin (Aspirin Ec Low Dose*) 81 mg PO DAILY [facility] Last Admin: 05/24/16 08:10 Dose: 81 mg Clonidine HCl (Catapres Tab*) 0.1 mg PO BID [facility] Last Admin: 05/24/16 08:10 Dose: 0.1 mg Heparin Sodium (Porcine) (Heparin Vial(*)) 5,000 units SUBCUT Q8HR [facility] Last Admin: 05/24/16 05:08 Dose: 5,000 units Hydralazine HCl (Apresoline Iv*) 10 mg IV Q4H PRN PRN Reason: Systolic >170 Metoprolol Tartrate (Lopressor Tab*) 25 mg PO BID [facility] Last Admin: 05/24/16 08:10 Dose: 25 mg Ondansetron HCl (Zofran Inj*) 4 mg IV Q6H PRN PRN Reason: NAUSEA Vital Signs 05/23/16 05/23/16 05/23/16 18:17 19:27 19:36 Temperature 98.1 F Pulse Rate 68 Respiratory 14 16 24 Rate Blood Pressure 157/98 (mmHg) O2 Sat by Pulse 99 Oximetry 05/24/16 05/24/16 05/24/16 00:02 04:09 07:10 Temperature 98.4 F 97.8 F 98.1 F Pulse Rate 59 55 52 Respiratory 16 12 16 Rate Blood Pressure 133/75 148/91 147/73 (mmHg) O2 Sat by Pulse 99 100 98 Oximetry 05/24/16 05/24/16 08:00 08:03 Temperature Pulse Rate 69 Respiratory 16 Rate Blood Pressure (mmHg) O2 Sat by Pulse Oximetry Oxygen Devices in Use Now: None Appearance: Middle aged male lying in bed, NAD Eyes: No Scleral Icterus Ears/Nose/Mouth/Throat: Mucous Membranes Moist Respiratory: Symmetrical Chest Expansion and Respiratory Effort, Clear to Auscultation Cardiovascular: NL Sounds; No Murmurs; No JVD, RRR, No Edema Abdominal: NL Sounds; No Tenderness; No Distention Extremities: No Clubbing, Cyanosis Skin: No Rash or Ulcers, No Nodules or Sclerosis Neurological: Alert and Oriented x 3 Result Diagrams: 05/22/16 22:30 05/23/16 05:07 Additional Lab and Data: Lab Results 05/22/16 05/22/16 05/22/16 Range/Units 22:30 22:30 22:30 WBC 6.6 (3.5-10.8) 10^3/ul RBC 4.89 (4.0-5.4) 10^6/ul Hgb 14.0 (14.0-18.0) g/dl Hct 43 (42-52) % MCV 88 (80-94) fL MCH 29 (27-31) pg MCHC 33 (31-36) g/dl RDW 14 (10.5-15) % Plt Count 232 (150-450) 10^3/ul MPV 8 (7.4-10.4) um3 INR (Anticoag Therapy) 1.10 (0.89-1.11) APTT 31.0 (26.0-36.3) seconds Sodium 141 (133-145) mmol/L Potassium 3.8 (3.5-5.0) mmol/L Chloride 103 (101-111) mmol/L Carbon Dioxide 31 (22-32) mmol/L Anion Gap 7 (2-11) mmol/L BUN 24 (6-24) mg/dL Creatinine 1.78 H (0.67-1.17) mg/dL Est GFR ( Amer) 53.9 (>60) Est GFR (Non-Af Amer) 41.9 (>60) BUN/Creatinine Ratio 13.5 (8-20) Glucose 95 (70-100) mg/dL Calcium 9.5 (8.6-10.3) mg/dL Total Bilirubin 0.30 (0.2-1.0) mg/dL AST 19 (13-39) U/L ALT 18 (7-52) U/L Alkaline Phosphatase 61 (34-104) U/L Total Creatine Kinase 158 (10-223) U/L CK-MB (CK-2) 2.0 (0.6-6.3) ng/mL Myoglobin 45.1 (17.4-105.7) ng/mL Troponin I 0.01 (<0.04) ng/mL B-Natriuretic Peptide ( - 100) pg/mL Total Protein 7.7 (6.4-8.9) g/dL Albumin 4.0 (3.2-5.2) g/dL Globulin 3.7 (2-4) g/dL Albumin/Globulin Ratio 1.1 (1-3) LDL Cholesterol Direct 78 mg/dL Urine Color Urine Appearance Urine pH (5-9) Ur Specific [place] (1.010-1.030) Urine Protein (Negative) Urine Ketones (Negative) Urine Blood (Negative) Urine Nitrate (Negative) Urine Bilirubin (Negative) Urine Urobilinogen (Negative) Ur Leukocyte Esterase (Negative) Urine WBC (Auto) (Absent) Urine RBC (Auto) (Absent) Urine Bacteria (Absent) Urine Glucose (Negative) Urine Ascorbic Acid (Negative) Blood Type Antibody Screen 05/22/16 05/22/16 05/22/16 Range/Units 22:30 22:35 22:48 WBC (3.5-10.8) 10^3/ul RBC (4.0-5.4) 10^6/ul Hgb (14.0-18.0) g/dl Hct (42-52) % MCV (80-94) fL MCH (27-31) pg MCHC (31-36) g/dl RDW (10.5-15) % Plt Count (150-450) 10^3/ul MPV (7.4-10.4) um3 INR (Anticoag Therapy) (0.89-1.11) APTT (26.0-36.3) seconds Sodium (133-145) mmol/L Potassium (3.5-5.0) mmol/L Chloride (101-111) mmol/L Carbon Dioxide (22-32) mmol/L Anion Gap (2-11) mmol/L BUN (6-24) mg/dL Creatinine (0.67-1.17) mg/dL Est GFR ( Amer) (>60) Est GFR (Non-Af Amer) (>60) BUN/Creatinine Ratio (8-20) Glucose (70-100) mg/dL Calcium (8.6-10.3) mg/dL Total Bilirubin (0.2-1.0) mg/dL AST (13-39) U/L ALT (7-52) U/L Alkaline Phosphatase (34-104) U/L Total Creatine Kinase (10-223) U/L CK-MB (CK-2) (0.6-6.3) ng/mL Myoglobin (17.4-105.7) ng/mL Troponin I (<0.04) ng/mL B-Natriuretic Peptide 38 ( - 100) pg/mL Total Protein (6.4-8.9) g/dL Albumin (3.2-5.2) g/dL Globulin (2-4) g/dL Albumin/Globulin Ratio (1-3) LDL Cholesterol Direct mg/dL Urine Color Yellow Urine Appearance Clear Urine pH 5.0 (5-9) Ur Specific [place] 1.021 (1.010-1.030) Urine Protein 2+(100 mg/dl) H (Negative) Urine Ketones Negative (Negative) Urine Blood Negative (Negative) Urine Nitrate Negative (Negative) Urine Bilirubin Negative (Negative) Urine Urobilinogen Negative (Negative) Ur Leukocyte Esterase Negative (Negative) Urine WBC (Auto) Trace(0-5/hpf) (Absent) Urine RBC (Auto) Trace(0-2/hpf) (Absent) Urine Bacteria Absent (Absent) Urine Glucose Negative (Negative) Urine Ascorbic Acid * H (Negative) Blood Type O Positive Antibody Screen Negative 05/23/16 Range/Units 00:40 WBC (3.5-10.8) 10^3/ul RBC (4.0-5.4) 10^6/ul Hgb (14.0-18.0) g/dl Hct (42-52) % MCV (80-94) fL MCH (27-31) pg MCHC (31-36) g/dl RDW (10.5-15) % Plt Count (150-450) 10^3/ul MPV (7.4-10.4) um3 INR (Anticoag Therapy) (0.89-1.11) APTT (26.0-36.3) seconds Sodium (133-145) mmol/L Potassium (3.5-5.0) mmol/L Chloride (101-111) mmol/L Carbon Dioxide (22-32) mmol/L Anion Gap (2-11) mmol/L BUN (6-24) mg/dL Creatinine (0.67-1.17) mg/dL Est GFR ( Amer) (>60) Est GFR (Non-Af Amer) (>60) BUN/Creatinine Ratio (8-20) Glucose (70-100) mg/dL Calcium (8.6-10.3) mg/dL Total Bilirubin (0.2-1.0) mg/dL AST (13-39) U/L ALT (7-52) U/L Alkaline Phosphatase (34-104) U/L Total Creatine Kinase (10-223) U/L CK-MB (CK-2) (0.6-6.3) ng/mL Myoglobin (17.4-105.7) ng/mL Troponin I 0.01 (<0.04) ng/mL B-Natriuretic Peptide ( - 100) pg/mL Total Protein (6.4-8.9) g/dL Albumin (3.2-5.2) g/dL Globulin (2-4) g/dL Albumin/Globulin Ratio (1-3) LDL Cholesterol Direct mg/dL Urine Color Urine Appearance Urine pH (5-9) Ur Specific [place] (1.010-1.030) Urine Protein (Negative) Urine Ketones (Negative) Urine Blood (Negative) Urine Nitrate (Negative) Urine Bilirubin (Negative) Urine Urobilinogen (Negative) Ur Leukocyte Esterase (Negative) Urine WBC (Auto) (Absent) Urine RBC (Auto) (Absent) Urine Bacteria (Absent) Urine Glucose (Negative) Urine Ascorbic Acid (Negative) Blood Type Antibody Screen Assess/Plan/Problems-Billing Mr Márquez is a 45 yo M who has a h/o HTN and stage III CKD who presented to the ER with c/o chest pain and associated diaphoresis. - Patient Problems (1) Chest pain Current Visit: Yes Status: Acute Code(s): R07.9 - CHEST PAIN, UNSPECIFIED SNOMED Code(s): 92546361 Comment: No evidence of ACS. Continue tele monitoring. Stress test 05/25/16. (2) HTN (hypertension) Current Visit: Yes Status: Acute Code(s): I10 - ESSENTIAL (PRIMARY) HYPERTENSION SNOMED Code(s): 14349066 Comment: BP is mildly elevated. Will increase clonidine to 0.2mg qAM, 0.1mg qPM. (3) Stage III chronic kidney disease Current Visit: Yes Status: Acute Code(s): N18.3 - CHRONIC KIDNEY DISEASE, STAGE 3 (MODERATE) SNOMED Code(s): 555985811 Comment: Creatinine is stable. (4) DVT prophylaxis Current Visit: Yes Status: Acute Code(s): SEY4210 - SNOMED Code(s): 280027939 Comment: SQ heparin (5) Full code status Current Visit: Yes Status: Acute Code(s): Z78.9 - OTHER SPECIFIED HEALTH STATUS SNOMED Code(s): 240103683
[2016-05-24] MEDS ORDERED: cloNIDine TAB* 0.1 MG PO SCH (21:00)
[2016-05-24] MEDS: Acetaminophen TAB* 325 MG PO PRN (21:56)
[2016-05-25] MEDS: Heparin VIAL(*) 5000 UNITS/ML VIAL (FIVE THOUSAND) SUBCUT SCH ×2 (05:11→13:35)
[2016-05-25] MEDS ORDERED: cloNIDine TAB* 0.1 MG PO SCH (09:00)
[2016-05-25] MEDS ORDERED: Regadenoson* 0.4 MG/5 ML SYRINGE ONE (09:14)
[2016-05-25] MEDS ORDERED: Aminophylline IV* 25 MG/ML 10 ML VIAL ONE (09:14)
[2016-05-25] MEDS: Acetaminophen TAB* 325 MG PO PRN (11:05)
[2016-05-25] MEDS: Aspirin EC Low Dose* 81 MG TAB.EC PO SCH (11:06)
[2016-05-25] MEDS: amLODIPine TAB* 5 MG PO SCH (11:06)
--- NOTE | 2016-05-25 11:29 | RAD ---
HISTORY: Chest pain, hypertension, family history of heart disease, previous [place] COMPARISONS: None TECHNIQUE: A 1 day stress/rest myocardial perfusion study was performed, with pharmacologic stress. The stress portion was monitored by Dr. Niño. Gated SPECT imaging was performed, with CT-based attenuation correction DOSE: Stress: Technetium 99m tetrofosmin, 25.87 millicuries, injected at 9:20 AM on May 25, 2016 Rest: Technetium 99m tetrofosmin, 10.35 millicuries, injected at 6:45 AM on May 25, 2016 Pharmacologic agent: Lexiscan FINDINGS: CARDIAC MONITORING: No EKG changes of ischemia with stress EF: 34 % TID: 0.9 MOTION: There is diffuse hypokinesia PERFUSION: There is a fixed defect anterolaterally on the nonattenuation corrected images which is felt to BE an artifact. This resolves with attenuation correction. On the attenuation corrected images only, there is a partially reversible defect of the distal septum towards the apex. That is felt to be artifactual. OTHER: There is cardiomegaly. IMPRESSION: 1. DECREASED EJECTION FRACTION OF 34%. 2. CARDIOMEGALY. 3. THERE IS A QUESTIONABLE PARTIALLY REVERSIBLE DEFECT OF THE DISTAL SEPTUM ON THE ATTENUATION CORRECTED IMAGES WHICH IS FELT TO BE LIKELY ARTIFACTUAL ASSESSMENT: HIGH RISK. Based on imaging criteria from ACC/AHA 2002. Guideline Update for the Management of Patient's with Chronic Stable Angina, table 23. Noninvasive Risk Stratification.
[2016-05-25] MEDS: Metoprolol Tartrate TAB* 50 mg PO SCH (13:40)
--- NOTE | 2016-05-25 15:51 | ECHO ---
Patient: OBI VILCHIS [id number] [facility] Rec#: [id number] : 1970 Date: 05/25/2016 Age: 45y Height: 178 cm / 70.1 in Weight: 91.6 kg / 201.9 lbs Sex: M BSA: 2.1 Room#: 444 Admit Date#: 05/25/2016 Type: Inpatient Referring: Felisha Calixto DO Reading: Goran Corrales MD Hearing Aid Consultant: Timoteo Haynes RDCS Transthoracic Echocardiogram Indication: Chest pain BP: 144/94 HR: 52 Rhythm: Bradycardia Findings History: HTN, chest pain with SOB, CKD Technical Comments: The study quality is good. Left Ventricle: The left ventricular chamber size is normal. Moderate to severe concentric left ventricular hypertrophy is observed.Echo speckled pattern which could be consistant with infiltrative disease (ie amyloidosis) Mild global hypokinesis of the left ventricle is observed. There is mild to moderately decreased left ventricular systolic function. The estimated ejection fraction is 35-40%. There is no consistent Doppler evidence of clinically significant diastolic dysfunction. Left Atrium: The left atrium is mildly dilated. Right Ventricle: The right ventricle wall thickness is mildly increased. The right ventricular cavity size is normal. The right ventricular global systolic function is normal. Right Atrium: The right atrial cavity size is normal. Aortic Valve: The aortic valve is trileaflet. There is no evidence of aortic regurgitation. There is no evidence of aortic stenosis. Mitral Valve: The mitral valve leaflets appear normal. There is trace to mild mitral regurgitation. There is no evidence of mitral stenosis. Tricuspid Valve: The tricuspid valve appears normal in structure and function. There is no evidence of tricuspid valve regurgitation. Pulmonic Valve: The pulmonic valve appears normal in structure and function. There is no evidence of pulmonic regurgitation. There is no pulmonic stenosis. Pericardium: There is no pericardial effusion. Aorta: There is no dilatation of the ascending aorta. There is no dilatation of the aortic arch. There is no dilation of the aortic root. Pulmonary Artery: The main pulmonary artery appears normal. Venous: The inferior vena cava appears normal in size. There is a greater than 50% respiratory change in the inferior vena cava dimension. Conclusions Moderate to severe concentric left ventricular hypertrophy is observed.Echo speckled pattern which could be consistant with infiltrative disease (ie amyloidosis) Mild global hypokinesis of the left ventricle is observed. There is mild to moderately decreased left ventricular systolic function. The estimated ejection fraction is 35-40%. The right ventricle wall thickness is mildly increased. There is no evidence of aortic regurgitation. There is no evidence of aortic stenosis. There is trace to mild mitral regurgitation. The tricuspid valve appears normal in structure and function. There is no pericardial effusion. Measurements Name Value Normal Range RVIDd (AP) 2D 2.5 cm (0.9 - 2.6) RVDdMajor (2D) 2.8 cm (2.2 - 4.4) RAd ISD 4CH 3.9 cm (3.4 - 4.9) IVSd (2D) 1.9 cm (0.6 - 1) LVPWd (2D) 1.7 cm (0.6 - 1) LVIDd (2D) 5.3 cm (3.6 - 5.4) LVIDs (2D) 4.2 cm - LV FS (2D) 21 % (25 - 45) Aortic Annulus 2.1 cm (1.4 - 2.6) Ao root diameter (2D) 3.3 cm (2.1 - 3.5) Ascending Ao 3.3 cm (2.1 - 3.4) Aortic arch 2.8 cm (1.8 - 3.4) LA dimension (AP) 2D 4.6 cm (2.3 - 3.8) LAd ISD 4CH 4.1 cm (2.9 - 5.3) LA ISD 4CH W 5 cm (2.5 - 4.5) Name Value Normal Range LA ESV SP 4CH (A/L) 72 ml - LA ESV SP 2CH (A/L) 38 ml - LA ESV BP (A/L) 64 ml - LA ESV BP (A/L) index 78 ml/m2 - LA ESV SP 4CH (MOD) 64 ml - LA ESV SP 2CH (MOD) 36 ml - Name Value Normal Range MV E-wave Vmax 0.56 m/sec - MV deceleration time 190 msec - MV A-wave Vmax 0.62 m/sec - MV E:A ratio 0.9 ratio - LV septal e' Vmax 0.09 m/sec - LV lateral e' Vmax 0.05 m/sec - LV E:e' septal ratio 6.2 ratio - LV E:e' lateral ratio 11.2 ratio - Name Value Normal Range AV Vmax 0.8 m/sec - LVOT Vmax 0.9 m/sec - Name Value Normal Range IVC diameter 1.6 cm - Name Value Normal Range PV Vmax 0.78 m/sec -
--- NOTE | 2016-05-25 16:54 | PN ---
Subjective Date of Service: 05/25/16 Interval History: Pt is feeling ok. No further chest pain. No SOB. Objective Active Medications: Acetaminophen (Tylenol Tab*) 650 mg PO Q6H PRN PRN Reason: FEVER/PAIN Last Admin: 05/25/16 11:05 Dose: 650 mg Amlodipine Besylate (Norvasc Tab*) 10 mg PO DAILY [facility] Last Admin: 05/25/16 11:06 Dose: 10 mg Aspirin (Aspirin Ec Low Dose*) 81 mg PO DAILY [facility] Last Admin: 05/25/16 11:06 Dose: 81 mg Clonidine HCl (Catapres Tab*) 0.1 mg PO BEDTIME [facility] Last Admin: 05/24/16 21:56 Dose: 0.1 mg Clonidine HCl (Catapres Tab*) 0.2 mg PO QAM [facility] Last Admin: 05/25/16 11:05 Dose: 0.2 mg Heparin Sodium (Porcine) (Heparin Vial(*)) 5,000 units SUBCUT Q8HR [facility] Last Admin: 05/25/16 13:35 Dose: 5,000 units Hydralazine HCl (Apresoline Iv*) 10 mg IV Q4H PRN PRN Reason: Systolic >170 Metoprolol Tartrate (Lopressor Tab*) 25 mg PO BID [facility] Last Admin: 05/25/16 13:40 Dose: Not Given Ondansetron HCl (Zofran Inj*) 4 mg IV Q6H PRN PRN Reason: NAUSEA Vital Signs 05/24/16 05/24/16 05/25/16 19:34 20:00 01:11 Temperature 98.3 F 98.2 F Pulse Rate 58 54 Respiratory 18 18 20 Rate Blood Pressure 158/97 139/80 (mmHg) O2 Sat by Pulse 100 99 Oximetry 05/25/16 04:41 Temperature 97.8 F Pulse Rate 55 Respiratory 20 Rate Blood Pressure 144/94 (mmHg) O2 Sat by Pulse 100 Oximetry Oxygen Devices in Use Now: None Appearance: Middle aged male lying in bed, NAD Eyes: No Scleral Icterus Ears/Nose/Mouth/Throat: Mucous Membranes Moist Respiratory: Symmetrical Chest Expansion and Respiratory Effort, Clear to Auscultation Cardiovascular: NL Sounds; No Murmurs; No JVD, RRR, No Edema Abdominal: NL Sounds; No Tenderness; No Distention Extremities: No Clubbing, Cyanosis Skin: No Rash or Ulcers, No Nodules or Sclerosis Neurological: Alert and Oriented x 3 Result Diagrams: 05/22/16 22:30 05/23/16 05:07 Additional Lab and Data: Lab Results 05/22/16 05/22/16 05/22/16 Range/Units 22:30 22:30 22:30 WBC 6.6 (3.5-10.8) 10^3/ul RBC 4.89 (4.0-5.4) 10^6/ul Hgb 14.0 (14.0-18.0) g/dl Hct 43 (42-52) % MCV 88 (80-94) fL MCH 29 (27-31) pg MCHC 33 (31-36) g/dl RDW 14 (10.5-15) % Plt Count 232 (150-450) 10^3/ul MPV 8 (7.4-10.4) um3 INR (Anticoag Therapy) 1.10 (0.89-1.11) APTT 31.0 (26.0-36.3) seconds Sodium 141 (133-145) mmol/L Potassium 3.8 (3.5-5.0) mmol/L Chloride 103 (101-111) mmol/L Carbon Dioxide 31 (22-32) mmol/L Anion Gap 7 (2-11) mmol/L BUN 24 (6-24) mg/dL Creatinine 1.78 H (0.67-1.17) mg/dL Est GFR ( Amer) 53.9 (>60) Est GFR (Non-Af Amer) 41.9 (>60) BUN/Creatinine Ratio 13.5 (8-20) Glucose 95 (70-100) mg/dL Calcium 9.5 (8.6-10.3) mg/dL Total Bilirubin 0.30 (0.2-1.0) mg/dL AST 19 (13-39) U/L ALT 18 (7-52) U/L Alkaline Phosphatase 61 (34-104) U/L Total Creatine Kinase 158 (10-223) U/L CK-MB (CK-2) 2.0 (0.6-6.3) ng/mL Myoglobin 45.1 (17.4-105.7) ng/mL Troponin I 0.01 (<0.04) ng/mL B-Natriuretic Peptide ( - 100) pg/mL Total Protein 7.7 (6.4-8.9) g/dL Albumin 4.0 (3.2-5.2) g/dL Globulin 3.7 (2-4) g/dL Albumin/Globulin Ratio 1.1 (1-3) LDL Cholesterol Direct 78 mg/dL Urine Color Urine Appearance Urine pH (5-9) Ur Specific [place] (1.010-1.030) Urine Protein (Negative) Urine Ketones (Negative) Urine Blood (Negative) Urine Nitrate (Negative) Urine Bilirubin (Negative) Urine Urobilinogen (Negative) Ur Leukocyte Esterase (Negative) Urine WBC (Auto) (Absent) Urine RBC (Auto) (Absent) Urine Bacteria (Absent) Urine Glucose (Negative) Urine Ascorbic Acid (Negative) Blood Type Antibody Screen 05/22/16 05/22/16 05/22/16 Range/Units 22:30 22:35 22:48 WBC (3.5-10.8) 10^3/ul RBC (4.0-5.4) 10^6/ul Hgb (14.0-18.0) g/dl Hct (42-52) % MCV (80-94) fL MCH (27-31) pg MCHC (31-36) g/dl RDW (10.5-15) % Plt Count (150-450) 10^3/ul MPV (7.4-10.4) um3 INR (Anticoag Therapy) (0.89-1.11) APTT (26.0-36.3) seconds Sodium (133-145) mmol/L Potassium (3.5-5.0) mmol/L Chloride (101-111) mmol/L Carbon Dioxide (22-32) mmol/L Anion Gap (2-11) mmol/L BUN (6-24) mg/dL Creatinine (0.67-1.17) mg/dL Est GFR ( Amer) (>60) Est GFR (Non-Af Amer) (>60) BUN/Creatinine Ratio (8-20) Glucose (70-100) mg/dL Calcium (8.6-10.3) mg/dL Total Bilirubin (0.2-1.0) mg/dL AST (13-39) U/L ALT (7-52) U/L Alkaline Phosphatase (34-104) U/L Total Creatine Kinase (10-223) U/L CK-MB (CK-2) (0.6-6.3) ng/mL Myoglobin (17.4-105.7) ng/mL Troponin I (<0.04) ng/mL B-Natriuretic Peptide 38 ( - 100) pg/mL Total Protein (6.4-8.9) g/dL Albumin (3.2-5.2) g/dL Globulin (2-4) g/dL Albumin/Globulin Ratio (1-3) LDL Cholesterol Direct mg/dL Urine Color Yellow Urine Appearance Clear Urine pH 5.0 (5-9) Ur Specific [place] 1.021 (1.010-1.030) Urine Protein 2+(100 mg/dl) H (Negative) Urine Ketones Negative (Negative) Urine Blood Negative (Negative) Urine Nitrate Negative (Negative) Urine Bilirubin Negative (Negative) Urine Urobilinogen Negative (Negative) Ur Leukocyte Esterase Negative (Negative) Urine WBC (Auto) Trace(0-5/hpf) (Absent) Urine RBC (Auto) Trace(0-2/hpf) (Absent) Urine Bacteria Absent (Absent) Urine Glucose Negative (Negative) Urine Ascorbic Acid * H (Negative) Blood Type O Positive Antibody Screen Negative 05/23/16 Range/Units 00:40 WBC (3.5-10.8) 10^3/ul RBC (4.0-5.4) 10^6/ul Hgb (14.0-18.0) g/dl Hct (42-52) % MCV (80-94) fL MCH (27-31) pg MCHC (31-36) g/dl RDW (10.5-15) % Plt Count (150-450) 10^3/ul MPV (7.4-10.4) um3 INR (Anticoag Therapy) (0.89-1.11) APTT (26.0-36.3) seconds Sodium (133-145) mmol/L Potassium (3.5-5.0) mmol/L Chloride (101-111) mmol/L Carbon Dioxide (22-32) mmol/L Anion Gap (2-11) mmol/L BUN (6-24) mg/dL Creatinine (0.67-1.17) mg/dL Est GFR ( Amer) (>60) Est GFR (Non-Af Amer) (>60) BUN/Creatinine Ratio (8-20) Glucose (70-100) mg/dL Calcium (8.6-10.3) mg/dL Total Bilirubin (0.2-1.0) mg/dL AST (13-39) U/L ALT (7-52) U/L Alkaline Phosphatase (34-104) U/L Total Creatine Kinase (10-223) U/L CK-MB (CK-2) (0.6-6.3) ng/mL Myoglobin (17.4-105.7) ng/mL Troponin I 0.01 (<0.04) ng/mL B-Natriuretic Peptide ( - 100) pg/mL Total Protein (6.4-8.9) g/dL Albumin (3.2-5.2) g/dL Globulin (2-4) g/dL Albumin/Globulin Ratio (1-3) LDL Cholesterol Direct mg/dL Urine Color Urine Appearance Urine pH (5-9) Ur Specific [place] (1.010-1.030) Urine Protein (Negative) Urine Ketones (Negative) Urine Blood (Negative) Urine Nitrate (Negative) Urine Bilirubin (Negative) Urine Urobilinogen (Negative) Ur Leukocyte Esterase (Negative) Urine WBC (Auto) (Absent) Urine RBC (Auto) (Absent) Urine Bacteria (Absent) Urine Glucose (Negative) Urine Ascorbic Acid (Negative) Blood Type Antibody Screen Assess/Plan/Problems-Billing Mr Márquez is a 45 yo M who has a h/o HTN and stage III CKD who presented to the ER with c/o chest pain and associated diaphoresis. - Patient Problems (1) Chest pain Current Visit: Yes Status: Acute Code(s): R07.9 - CHEST PAIN, UNSPECIFIED SNOMED Code(s): 10415393 Comment: No evidence of ACS. Stress test showed a partially reversible defect though this corrects with attenuation. His EF however is reported to be 34% this is markedly down from Dr. Deras was quoted when he spoke to someone at [facility] on admission. Echo was therefore performed which confirmed his EF to be 35-40%. He also has a speckled pattern-? amyloidosis. He needs a cardiology evaluation though this does not need to be performed while he is in the hospital. (2) HTN (hypertension) Current Visit: Yes Status: Acute Code(s): I10 - ESSENTIAL (PRIMARY) HYPERTENSION SNOMED Code(s): 91319541 Comment: BP remains mildly elevated. Continue current medication regimen though decreased clonidine back to 0.1mg BID and add losartan given his reduced EF. (3) Stage III chronic kidney disease Current Visit: Yes Status: Acute Code(s): N18.3 - CHRONIC KIDNEY DISEASE, STAGE 3 (MODERATE) SNOMED Code(s): 656087245 Comment: Creatinine is stable. (4) DVT prophylaxis Current Visit: Yes Status: Acute Code(s): FDV8208 - SNOMED Code(s): 957222718 Comment: SQ heparin (5) Full code status Current Visit: Yes Status: Acute Code(s): Z78.9 - OTHER SPECIFIED HEALTH STATUS SNOMED Code(s): 494942008 Status and Disposition: d/c home
--- NOTE | 2016-05-25 17:32 | PN ---
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 I feel it is too risky to start losartan at this time and therefore will have the patient resume his usual dose of HCTZ upon discharge.
[2016-05-25 17:56] VITALS: BP 132/78
--- NOTE | 2016-05-26 15:28 | DS ---
DISCHARGE SUMMARY: DATE OF ADMISSION: 05/23/16 DATE OF DISCHARGE: 05/25/16 PRIMARY CARE PROVIDER: Physician at [facility]. PRINCIPAL DIAGNOSES: 1. Chest pain of unclear etiology. 2. Reduced ejection fraction. 3. Hypertension. DISCHARGE MEDICATIONS: 1. Metoprolol tartrate 25 mg p.o. b.i.d. 2. Clonidine 0.1 mg p.o. b.i.d. 3. Amlodipine 10 mg p.o. daily. 4. Hydrochlorothiazide 25 mg p.o. daily. 5. Aspirin 81 mg p.o. daily (new). HOSPITAL COURSE: Ms. Márquez is a 45-year-old male who presented to the emergency room on 05/22/16 with complaints of chest pain. The patient was admitted to rule out an acute coronary syndrome. However, he was also started on heparin drip, as there was a significant concern for acute coronary syndrome. The patient was brought in as a STEMI alert, however, the patient was seen in the emergency room by Dr. Deras, who felt that the patient was not in fact a STEMI, but LVH with strain. Dr. Deras was able to speak with somebody at [facility] where he learned that the patient had an echocardiogram performed that revealed an EF of 60% at that point. The patient had been stating that he had a catheterization, however, that was not the case. The patient was admitted and ruled out for an acute coronary syndrome. When the patient's troponins remained negative, the heparin drip was stopped. He underwent a chemical nuclear stress test on the day of discharge, which revealed decreased ejection fraction of 34%. Cardiomegaly and questionable partially reversible defect of the distal septum on the attenuation corrected images, which is felt to be likely artifactual. Given the reduced ejection fraction seen on stress test compared to the reported ejection fraction in January [address] Deras was informed of, the decision was made to obtain a transthoracic echocardiogram. This was also done on the day of discharge. The patient was found to have an EF of 35 to 40% with moderate severe concentric left ventricular hypertrophy. Echo speckle pattern was noted, which could be consistent with infiltrative disease (i.e. amyloidosis), mild global hypokinesis of the left ventricle was observed. Right ventricle wall thickness was mildly increased. There was no evidence of aortic regurgitation. No evidence of aortic stenosis. There was trace to mild mitral regurgitation and tricuspid valve appeared normal in structure and function. The patient again was reportedly found to have an ejection fraction of 60% in January 2016 at [facility]. I requested these records, however, they were not obtained. The patient is now chest pain free. He is not short of breath and has no signs of CHF at this point. The patient does need a workup for his reduced ejection fraction, however, I believe that this can occur as an outpatient. I was going to start the patient on losartan, however, he has a history of airway obstruction secondary to lisinopril and because of this I have not started losartan. The patient will need to followup with Cardiology again to discuss workup and management ongoing. At this point, the patient is felt to be stable for discharge back to [facility]. FOLLOWUP CONCERNS: The patient should be seen by the provider at the [facility] per their protocol. ACTIVITY LEVEL: As tolerated. DIET: Low fat. CONDITION ON DISCHARGE: Stable. TIME SPENT: Thirty five minutes was spent discharging this patient. CC: Physician at [facility]. * [id number]/[facility] #: [id number] NIKA
== END 2016-05-25 20:36 ==
LOC: ED 22:29 → MEDTELE 05-23 01:45 → EEVIPCON 05-23 17:41 → INTOOBSV 05-23 17:41 → OBSVTOIN 05-23 17:41
PROVIDERS: ADMIT Hospitalist; ATTEND Hospitalist
DX: R07.9 Chest pain, unspecified (principal); I12.9 Hypertensive chronic kidney disease with stage 1 through stage 4 chronic kidney disease, or unspecified chronic kidney disease; N18.3 Chronic kidney disease, stage 3 (moderate); I51.7 Cardiomegaly; Z88.8 Allergy status to other drugs, medicaments and biological substances; R06.02 Shortness of breath; R42 Dizziness and giddiness; Z79.899 Other long term (current) drug therapy; Z87.891 Personal history of nicotine dependence; R94.31 Abnormal electrocardiogram [ECG] [EKG]
CPT/HCPCS: 36415; 71010; 78452; 80048; 80053; 81003; 81015; 82550; 82553; 83721; 83874; 83880; 84484; 85027; 85610; 85730; 86850; 86900; 86901; 93005; 93017; 93306; 96365; 96366; 96372; 96375; 99285; A9270-GY; A9502; G0378; J0280; J1644; J2250; J2785; J3010